=== PATIENT | female | born 1945 | race Caucasian/White ===

== ENCOUNTER 2019-08-25 06:18 | Inpatient (IN) | payer OTHER, BC ==
[2019-08-12 11:19] VITALS: BMI 23.6
--- NOTE | 2019-08-24 16:20 | SPA.PREOP ---
- PRE-OP NOTE Dx: ESRD Planned Procedure: permacath exchange Surgeon: Dr. Mathew - ASSESSMENT/PLAN 1. Make NPO after midnight except po meds 2. GI/DVT PPX 3. Medical optimization / clearance 4. Consent to be obtained by surgeon after risks, benefits and alternatives discussed with patient and or Health Care Proxy.
[2019-08-25] MEDS ORDERED: VANCOMYCIN 1,000 MG in DEXTROSE 5%-WATER - 250 ML IVPB ONE (06:41)
[2019-08-25] MEDS ORDERED: TRANEXAMIC ACID 1000 MG/10 ML VIAL IVPUSH ONE (06:41)
[2019-08-25] MEDS ORDERED: CEFAZOLIN 1 GM/D5W 1 GRAM/50 ML BAG IVPB ONE (06:41)
[2019-08-25] MEDS ORDERED: SODIUM CHLORIDE 0.9% P/F 10 ML VIAL IJ ONE (07:13)
[2019-08-25] MEDS ORDERED: MIDAZOLAM HCL 2 MG/2 ML SINGLE DOSE VIAL ONE ×2 (07:13→07:25)
[2019-08-25] MEDS ORDERED: BUPIVACAINE LIPOSOME/PF (EXPAREL) 266 MG/20 ML VIAL ONE (07:13)
[2019-08-25] MEDS ORDERED: PROPOFOL 20 ML ONE ×3 (08:02)
[2019-08-25] MEDS ORDERED: VANCOMYCIN 1,000 MG VIAL (RESTRICTED TO ID ONLY) ONE (08:03)
[2019-08-25] MEDS ORDERED: ceFAZolin SODIUM 1 GM VIAL ONE (08:03)
[2019-08-25] MEDS ORDERED: KETOROLAC TROMETHAMINE 30 MG/1 ML VIAL ONE (08:17)
[2019-08-25] MEDS ORDERED: DEXAMETHASONE SOD PHOSPHATE 4 MG/1 ML VIAL ONE (08:17)
[2019-08-25] MEDS ORDERED: ONDANSETRON 4 MG/2 ML VIAL ONE ×2 (08:43→11:05)
[2019-08-25] MEDS ORDERED: ONDANSETRON 4 MG/2 ML VIAL IVPUSH PRN (09:02)
[2019-08-25] MEDS ORDERED: oxyCODONE HCL 5 MG TABLET PO PRN (09:03)
[2019-08-25] MEDS ORDERED: TRANEXAMIC ACID 1000 MG/10 ML VIAL ONE (09:10)
[2019-08-25] MEDS ORDERED: LACTATED RINGERS SOLUTION 1,000 ML IV SCH ×2 (09:15→10:30)
--- NOTE | 2019-08-25 10:20 | OP ---
Operative Note - Note: Operative Date: 08/25/19 Pre-Operative Diagnosis: Right Tricompartment Osteoarthritis Knee Operation: Right Total Knee Arthroplasty Implants: [place]. Femur3 Triathlon Tibia 4 [id number] cement Standard Surgeon: Skip Prater Employment Appeals Examiner: Joel Johnson Anesthesia: Spinal Estimated Blood Loss (mls): 0 Fluid Volume Replaced (mls): 2 Operative Report Dictated: Yes
--- NOTE | 2019-08-25 10:28 | SURG ---
Surgery Detention Attendant Note Detention Attendant: Joel Johnson PA-C Date of Service: 08/25/19 Diagnosis: Right Tricompartment Osteoarthritis Knee Procedure: Right Total Knee Arthroplasty I was present for the entirety of the operative procedure. For further detail, please refer to operative report. Visit type - Case Type Case Type: Scheduled - New patient This patient is new to me today: Yes Date on this admission: 08/25/19
[2019-08-25] MEDS ORDERED: MAG HYDROX/AL HYDROX/SIMETH 30 ML UNIT-DOSE CUP PO PRN (10:30)
[2019-08-25] MEDS ORDERED: MAGNESIUM HYDROX 2400MG/30ML ORAL SUSPENSION 30 ML CUP PO PRN (10:30)
[2019-08-25] MEDS ORDERED: ACETAMINOPHEN 325 MG TABLET (FP) ONE (10:59)
[2019-08-25] MEDS: ONDANSETRON 4 MG/2 ML VIAL IVPUSH PRN (11:11)
[2019-08-25] MEDS: ACETAMINOPHEN 325 MG TABLET (FP) PO SCH ×4 (11:20→23:46)
--- NOTE | 2019-08-25 11:20 | HP ---
HISTORY OF PRESENT ILLNESS: 74 year-old female with a PMH significant for HLD, asthma, hypothyroidism, and OA s/p right total knee arthroplasty on 08/25/[address] Prater. PAST MEDICAL HISTORY: Hyperlipidemia Asthma Conductive hearing loss Carpal tunnel syndrome Hypothyroidism PAST SURGICAL HISTORY: Bilateral bone spurs Bilateral bunionectomy Bilateral stapedes Tonsillectomy Social History: Smoking: former, quit 30 years ago Alcohol: no Drugs: no Family history: Mother CHF, arthrits; father DM Allergies levofloxacin [From [facility]] Adverse Reaction (Severe, Verified 08/12/19 11:25) INSOMNIA X DAYS HOME MEDICATIONS: Home Medications Medication Instructions Recorded Albuterol Sulfate [Proventil HFA 1 - 2 inh PO DAILY 08/12/19 Inhaler -] Cetirizine HCl [Zyrtec -] 10 mg PO Q2D 08/12/19 Levothyroxine Sodium [Synthroid] 88 mcg PO DAILY 08/12/19 Montelukast Sodium [Singulair] 10 mg PO HS 08/12/19 REVIEW OF SYSTEMS CONSTITUTIONAL: Absent: fever, chills, diaphoresis, generalized weakness, malaise, loss of appetite, weight change HEENT: Absent: rhinorrhea, nasal congestion, throat pain, throat swelling, difficulty swallowing, mouth swelling, ear pain, eye pain, visual changes CARDIOVASCULAR: Absent: chest pain, syncope, palpitations, irregular heart rate, lightheadedness , peripheral edema RESPIRATORY: Absent: cough, shortness of breath, dyspnea with exertion, orthopnea, wheezing, stridor, hemoptysis GASTROINTESTINAL: Absent: abdominal pain, abdominal distension, nausea, vomiting, diarrhea, constipation, melena, hematochezia GENITOURINARY: Absent: dysuria, frequency, urgency, hesitancy, hematuria, flank pain, genital pain MUSCULOSKELETAL: Absent: myalgia, arthralgia, joint swelling, back pain, neck pain SKIN: Absent: rash, itching, pallor HEMATOLOGIC/IMMUNOLOGIC: Absent: easy bleeding, easy bruising, lymphadenopathy, frequent infections ENDOCRINE: Absent: unexplained weight gain, unexplained weight loss, heat intolerance, cold intolerance NEUROLOGIC: Absent: headache, focal weakness or paresthesias, dizziness, unsteady gait, seizure, mental status changes, bladder or bowel incontinence PSYCHIATRIC: Absent: anxiety, depression, suicidal or homicidal ideation, hallucinations. PHYSICAL EXAMINATION Vital Signs - 24 hr 08/25/19 08/25/19 08/25/19 06:44 10:30 10:35 Temperature 97.8 F 97.6 F Pulse Rate 64 53 L 52 L Respiratory 18 18 12 Rate Blood Pressure 169/70 143/76 139/50 L O2 Sat by Pulse 100 97 Oximetry (%) 08/25/19 08/25/19 08/25/19 10:40 10:45 11:00 Temperature Pulse Rate 51 L 53 L 51 L Respiratory 10 12 14 Rate Blood Pressure 143/70 140/75 152/54 L O2 Sat by Pulse 97 98 98 Oximetry (%) GENERAL: Awake, alert, and fully oriented, in no acute distress. HEAD: Normal with no signs of trauma. EYES: Pupils equal, round and reactive to light, extraocular movements intact, sclera anicteric, conjunctiva clear. No lid lag. LUNGS: Breath sounds equal, clear to auscultation bilaterally. No wheezes, and no crackles. No accessory muscle use. HEART: Regular rate and rhythm, S1 and S2 ABDOMEN: Soft, nontender, not distended UPPER EXTREMITIES: 2+ pulses, warm, well-perfused. No cyanosis. No clubbing. No peripheral edema. LOWER EXTREMITIES: RIGHT: surgical dressings c/d/i; ice pack; TEDs, SCDs, flex/ extend toes, 5/5 sensory NEUROLOGICAL: Cranial nerves II-XII intact. Normal speech. Pre op Hgb 13.5 BUN 20 Cr 0.7 Intra op Ancef 2g, Vanc 1 g LR 1600mL EBL <100mL ASSESSMENT/PLAN: 74 year-old female with a PMH significant for HLD, asthma, hypothyroidism, and OA s/p right total knee arthroplasty on 08/25/[address] Prater. --POD #0 --perioperative antibiotics per surgery --pain management per surgery --ASA 81mg BID --protonix --bowel regimen --incentive spirometry --no drains --voiding freely Hyperlipidemia --not on statin therapy Asthma --stable --continue albuterol, claritin Hypothyroidism --continue levothyroxine FEN Fluids: LR@125mL/hr Electrolytes: replete as indicated Nutrition: regular diet DVT prophylaxis: OOB, ambulation, SCDs, TEDs, ASA 81mg BID Physical therapy Dispo: continues to require inpatient care. Full code. Visit type - Emergency Visit Emergency Visit: No - New Patient This patient is new to me today: Yes Date on this admission: 08/25/19 - Critical Care Critical Care patient: No
[2019-08-25] MEDS: oxyCODONE HCL 5 MG TABLET PO PRN ×3 (12:10→23:47)
[2019-08-25] MEDS: CEFAZOLIN 1 GM/D5W 1 GRAM/50 ML BAG IVPB SCH (17:57)
--- NOTE | 2019-08-25 19:22 | OP ---
DATE OF OPERATION: 08/25/2019 SURGEON: Skip Prater M.D. [employer]BI[employer] MECHANIC: [employer] PREOPERATIVE DIAGNOSIS: Fixed valgus, fixed flexed, tricompartment osteoarthritis, right knee. POSTOPERATIVE DIAGNOSIS: Fixed valgus, fixed flexed, tricompartment osteoarthritis, right knee. OPERATION: Right posterior stabilized total knee arthroplasty. ANESTHESIA: Conscious sedation with spinal anesthesia and peripheral nerve block. ANTIBIOTICS GIVEN: 2 g Kefzol, 1 g vancomycin preoperative; 1 g Kefzol given at the end of the procedure. TOURNIQUET TIME: 80 minutes. OPERATION DETAILS: The patient was correctly identified, brought in operating room. The right lower extremity was prepped, draped in the routine manner with Betadine scrub solution, wiped off with alcohol, DuraPrep applied. Tourniquet applied. A free drape applied. Timeout was called. Preoperative evaluation clinically revealed a fixed valgus of 10 degrees and 5 degrees fixed flexed deformity. Midline incision utilized. The dissection was taken through subcutaneous tissue to the quadriceps mechanism. The soft tissue of the proximal tibia was freed using sharp dissection to the tibial bone bed, raising a flap off the proximal medial aspect of the tibia, right around the medial surface of the patella itself. Hence the distal 1/3 at the level of the patella, the incision was then coursed posteriorly leaving a cuff of soft tissue attached to the vastus medialis and extending all the way around to the linea aspera posteromedially. The epimysium of the actual muscle was freed completely. With finger dissection above the suprapatellar pouch, a blunt hammer was placed behind the entire quadriceps mechanism muscle and gently flexing the knee, the entire patella was lateralized without any difficulty. This was a typical subvastus approach. Hemostasis was achieved appropriately at the back of the femur in the area of the dissection. This was well away from the saphenous hiatus and the vascular bundle. The tibia was cut first to neutral, that is aligned with the extramedullary jig alignment of [place]. The tibial cut was made neutral and 90 degrees to the actual shaft of the tibia, sizing of the component measured size 4 for a tibial tray. The appropriate entry hole for the femur was inserted. The femoral condyle was deficient laterally both in the coronal as well as flexion plane. The posterior bone of the femoral component was markedly deficient. Jigs were adjusted accordingly, and the cuts were made with the knee at 90 degrees of flexion base of the epicondylar axis. The tibial plateau that had already been cut to 90 degrees of the shaft and [place]'s line. The jigs seated and allowed for a measurement of size 3 femur. The appropriate cuts were made using the block jigs appropriately. The box cut was made with the appropriate jig and the trial components were seated, bringing about anatomic realignment from valgus, full extension with 11-mm polyethylene, and flexion-extension gaps were even at 11 mm. Once this had been ascertained, the tibial and femoral bone beds were thoroughly lavaged. The patella was cut in accordance with Sal's line from patellar ligament to quadriceps tendon. This was facilitated by using 2 patellar clamps everting the patella and holding it firmly in the hand while the cut was made. The appropriate lugholes for the jig for a 27-mm patellar button were applied. This was positioned, and the trialing of the components revealed excellent alignment, normal patellar tracking, and a negative thumb test test, complete stability in flexion as well as extension, including rotational stability. Now that we were satisfied with the positioning of the trial components, they were removed and a size 3 femur, size 3 tibia, with an 11-mm polyethylene liner and a 27-mm polyethylene button was cemented in position using routine cement. All extraneous cement had been removed. The wounds were thoroughly lavaged. The knee was checked again for stability and appropriate range of motion. Range of motion was 0 to 120 degrees, and stability in the coronal sagittal rotational plane was normal and patella tracking was completely normal. The wounds were again lavaged. No need for a drain, as the entire tissue bed was dry. Closure: The medial retinacular tissues to the remaining soft tissue of the vastus medialis with number 1 Vicryl, subcutaneous 1 and 2-0 Vicryl, skin 3-0 Monocryl with Steri-Strips. Operation went well, no complications. MD EUNICE Babin/[id number]
[2019-08-25] MEDS: ASPIRIN COATED 81 MG TABLET.EC PO SCH (21:06)
[2019-08-25] MEDS: ASCORBIC ACID 500 MG TABLET (FP) PO SCH (21:06)
[2019-08-25] MEDS: SENNOSIDES/DOCUSATE COMBO (SENNA PLUS) TABLET (UD) PO SCH (21:06)
[2019-08-25] MEDS: MONTELUKAST NA 10 MG TABLET PO SCH ×2 (21:06→22:00)
[2019-08-26] MEDS: CEFAZOLIN 1 GM/D5W 1 GRAM/50 ML BAG IVPB SCH (03:01)
[2019-08-26] MEDS: ACETAMINOPHEN 325 MG TABLET (FP) PO SCH ×4 (06:37→23:56)
[2019-08-26] MEDS: oxyCODONE HCL 5 MG TABLET PO PRN ×2 (06:38→09:15)
[2019-08-26] MEDS: LEVOTHYROXINE NA 88 MCG TABLET (FP) PO SCH (06:38)
[2019-08-26 07:15] LABS: HEMATOCRIT 35.1 % (32.4-45.2); HEMOGLOBIN 11.4 GM/dl (10.7-15.3); MCH 30.9 pg (25.7-33.7); MCHC 32.6 g/dl (32.0-36.0); MEAN CELL VOLUME 94.8 fl (80-96); PLATELET COUNT 171 K/MM3 (134-434); RBC 3.71 M/mm3 (3.60-5.2); RDW 11.9 % (11.6-15.6); WHITE BLOOD COUNT 7.8 K/mm3 (4.0-10.8)
[2019-08-26 07:30] LABS: CALCIUM 8.7 mg/dl (8.5-10); CREATININE 0.7 mg/dl (0.55-1.3); POTASSIUM 3.8 mmol/L (3.5-5.1)
[2019-08-26] MEDS: SENNOSIDES/DOCUSATE COMBO (SENNA PLUS) TABLET (UD) PO SCH ×2 (09:15→21:18)
[2019-08-26] MEDS: ASPIRIN COATED 81 MG TABLET.EC PO SCH ×2 (09:15→21:18)
[2019-08-26] MEDS: ASCORBIC ACID 500 MG TABLET (FP) PO SCH ×2 (09:15→21:18)
[2019-08-26] MEDS: PANTOPRAZOLE 40 MG TABLET (FP) PO SCH (09:15)
[2019-08-26] MEDS: MULTIVITAMINS (DAILY MVI) TABLET (FP) PO SCH (09:15)
[2019-08-26] MEDS: ALBUTEROL SO4 8 GM HFA INHALER IH SCH (09:17)
--- NOTE | 2019-08-26 10:07 | PN ---
Progress Note (short form) - Note Progress Note: POD#1 Pt without any complaints this am. No CP/SOB. OOB and ambulating to the restroom , passing flatus. Her right knee pain is around a 3 to 4. Vital Signs Period Temp Pulse Resp BP Sys/Brown Pulse Ox Last 24 Hr 97 F-98.6 F 51-66 10-18 103-152/50-92 95-100 GEN: A&0x3, NAD CC: RRR Lungs: CTA b/l LE: b/l calves soft, non-tender, no swelling. Neuro: 5/5 dorsi/plantar flexion b/l and EHL. Able to straight leg raise both legs, left stronger than the right. Right dressing c/d/i. +2 dp pulse b/l. CBC, BMP 08/26/19 07:09 08/26/19 07:09 A/P: s/p Right total knee replacement Pain well managed, plan for PT today OOB/ambulate with PT and nursing staff Stool softners for constipation DVT with aspirin 81mg oral BID/VICKI/SCDs and ambulation D/w Dr. Prater
--- NOTE | 2019-08-26 10:21 | HP ---
CHIEF COMPLAINT: PCP: HISTORY OF PRESENT ILLNESS: ER course was notable for: (1) (2) (3) Recent Travel: PAST MEDICAL HISTORY: PAST SURGICAL HISTORY: Social History: Smoking: Alcohol: Drugs: [facility]ies [facility] Adverse Reaction (Severe, Verified 08/12/19 11:25) INSOMNIA X DAYS HOME MEDICATIONS: Home Medications Medication Instructions Recorded Albuterol Sulfate [Proventil HFA 1 - 2 inh PO DAILY 08/12/19 Inhaler -] Cetirizine HCl [Zyrtec -] 10 mg PO Q2D 08/12/19 Levothyroxine Sodium [Synthroid] 88 mcg PO DAILY 08/12/19 Montelukast Sodium [Singulair] 10 mg PO HS 08/12/19 REVIEW OF SYSTEMS CONSTITUTIONAL: Absent: fever, chills, diaphoresis, generalized weakness, malaise, loss of appetite, weight change HEENT: Absent: rhinorrhea, nasal congestion, throat pain, throat swelling, difficulty swallowing, mouth swelling, ear pain, eye pain, visual changes CARDIOVASCULAR: Absent: chest pain, syncope, palpitations, irregular heart rate, lightheadedness , peripheral edema RESPIRATORY: Absent: cough, shortness of breath, dyspnea with exertion, orthopnea, wheezing, stridor, hemoptysis GASTROINTESTINAL: Absent: abdominal pain, abdominal distension, nausea, vomiting, diarrhea, constipation, melena, hematochezia GENITOURINARY: Absent: dysuria, frequency, urgency, hesitancy, hematuria, flank pain, genital pain MUSCULOSKELETAL: Absent: myalgia, arthralgia, joint swelling, back pain, neck pain SKIN: Absent: rash, itching, pallor HEMATOLOGIC/IMMUNOLOGIC: Absent: easy bleeding, easy bruising, lymphadenopathy, frequent infections ENDOCRINE: Absent: unexplained weight gain, unexplained weight loss, heat intolerance, cold intolerance NEUROLOGIC: Absent: headache, focal weakness or paresthesias, dizziness, unsteady gait, seizure, mental status changes, bladder or bowel incontinence PSYCHIATRIC: Absent: anxiety, depression, suicidal or homicidal ideation, hallucinations. PHYSICAL EXAMINATION Vital Signs - 24 hr 08/25/19 08/25/19 08/25/19 10:30 10:35 10:40 Temperature 97.6 F Pulse Rate 53 L 52 L 51 L Respiratory 18 12 10 Rate Blood Pressure 143/76 139/50 L 143/70 O2 Sat by Pulse 100 97 97 Oximetry (%) 08/25/19 08/25/19 08/25/19 10:45 11:00 11:15 Temperature Pulse Rate 53 L 51 L 54 L Respiratory 12 14 16 Rate Blood Pressure 140/75 152/54 L 146/67 O2 Sat by Pulse 98 98 98 Oximetry (%) 08/25/19 08/25/19 08/25/19 11:30 18:00 22:18 Temperature 97 F L 98.5 F 98.6 F Pulse Rate 54 L 62 62 Respiratory 16 16 18 Rate Blood Pressure 148/92 126/62 103/52 L O2 Sat by Pulse 98 95 95 Oximetry (%) 08/26/19 08/26/19 08/26/19 02:38 06:58 08:14 Temperature 98.5 F 98.5 F Pulse Rate 66 63 Respiratory 18 18 18 Rate Blood Pressure 142/74 105/56 L O2 Sat by Pulse 96 97 97 Oximetry (%) GENERAL: Awake, alert, and fully oriented, in no acute distress. HEAD: Normal with no signs of trauma. EYES: Pupils equal, round and reactive to light, extraocular movements intact, sclera anicteric, conjunctiva clear. No lid lag. EARS, NOSE, THROAT: Ears normal, nares patent, oropharynx clear without exudates. Moist mucous membranes. NECK: Normal range of motion, supple without lymphadenopathy, JVD, or masses. LUNGS: Breath sounds equal, clear to auscultation bilaterally. No wheezes, and no crackles. No accessory muscle use. HEART: Regular rate and rhythm, normal S1 and S2 without murmur, rub or gallop. ABDOMEN: Soft, nontender, not distended, normoactive bowel sounds, no guarding, no rebound, no masses. No hepatomegaly or splenomegaly. MUSCULOSKELETAL: Normal range of motion at all joints. No bony deformities or tenderness. No CVA tenderness. UPPER EXTREMITIES: 2+ pulses, warm, well-perfused. No cyanosis. No clubbing. No peripheral edema. LOWER EXTREMITIES: 2+ pulses, warm, well-perfused. No calf tenderness. No peripheral edema. NEUROLOGICAL: Cranial nerves II-XII intact. Normal speech. Normal gait. PSYCHIATRIC: Cooperative. Good eye contact. Appropriate mood and affect. SKIN: Warm, dry, normal turgor, no rashes or lesions noted, normal capillary refill. Laboratory Results - last 24 hr 08/26/19 08/26/19 07:09 07:09 WBC 7.8 RBC 3.71 Hgb 11.4 Hct 35.1 MCV 94.8 MCH 30.9 MCHC 32.6 RDW 11.9 Plt Count 171 MPV 8.0 Sodium 136 Potassium 3.8 Chloride 101 Carbon Dioxide 25 Anion Gap 10 BUN 18.0 Creatinine 0.7 Est GFR (CKD-EPI)AfAm 100.32 Est GFR (CKD-EPI)NonAf 86.56 Random Glucose 136 H Calcium 8.7 Magnesium 2.0 ASSESSMENT/PLAN:
--- NOTE | 2019-08-26 10:45 | PN ---
Progress Note (short form) - Note Progress Note: 74yo F s/p TKR w spinal and PNB. pt comfortable on PO meds. no anesthetic comps. good result anesthetic care
[2019-08-26] MEDS ORDERED: KETOROLAC TROMETHAMINE 30 MG/1 ML VIAL IVPUSH PRN (13:34)
--- NOTE | 2019-08-26 13:34 | PN ---
Physical Exam: SUBJECTIVE: Patient seen and examined. [place] oversedated during PT, was falling asleep. Now feels unwell, pain in knee, does not want to go back to PT. OBJECTIVE: Vital Signs Period Temp Pulse Resp BP Sys/Brown Pulse Ox Last 24 Hr 98.5 F-98.6 F 62-66 16-18 103-142/52-74 95-97 GENERAL: Awake, alert, and fully oriented, in no acute distress. HEAD: Normal with no signs of trauma. EYES: Pupils equal, round and reactive to light, extraocular movements intact, sclera anicteric, conjunctiva clear. No lid lag. LUNGS: Breath sounds equal, clear to auscultation bilaterally. No wheezes, and no crackles. No accessory muscle use. HEART: Regular rate and rhythm, S1 and S2 ABDOMEN: Soft, nontender, not distended UPPER EXTREMITIES: 2+ pulses, warm, well-perfused. No cyanosis. No clubbing. No peripheral edema. LOWER EXTREMITIES: RIGHT: surgical dressings c/d/i; ice pack; TEDs, SCDs, flex/ extend toes, 5/5 sensory NEUROLOGICAL: Cranial nerves II-XII intact. Normal speech. Laboratory Results - last 24 hr 08/26/19 08/26/19 07:09 07:09 WBC 7.8 RBC 3.71 Hgb 11.4 Hct 35.1 MCV 94.8 MCH 30.9 MCHC 32.6 RDW 11.9 Plt Count 171 MPV 8.0 Sodium 136 Potassium 3.8 Chloride 101 Carbon Dioxide 25 Anion Gap 10 BUN 18.0 Creatinine 0.7 Est GFR (CKD-EPI)AfAm 100.32 Est GFR (CKD-EPI)NonAf 86.56 Random Glucose 136 H Calcium 8.7 Magnesium 2.0 Active Medications Generic Name Dose Route Start Last Admin Trade Name Freq PRN Reason Stop Dose Admin Acetaminophen 650 mg 08/25/19 12:00 08/26/19 06:37 Tylenol - PO 08/28/19 11:59 650 mg Q6H ZEYNEP Administration Al Hydroxide/Mg Hydroxide 30 ml 08/25/19 10:30 Mylanta Oral Suspension - PO Q4H PRN DYSPEPSIA Albuterol Sulfate 1 - 2 puff 08/26/19 10:00 08/26/19 09:17 Ventolin Hfa Inhaler - IH 1 puff DAILY ZEYNEP Administration Ascorbic Acid 500 mg 08/25/19 22:00 08/26/19 09:15 Vitamin C - PO 500 mg BID [facility] Administration Aspirin 81 mg 08/25/19 22:00 08/26/19 09:15 Ecotrin - PO 81 mg BID [facility] Administration Levothyroxine Sodium 88 mcg 08/26/19 07:00 08/26/19 06:38 Synthroid - PO 88 mcg DAILY@0700 [facility] Administration Loratadine 10 mg 08/27/19 10:00 Claritin - PO Q2D [facility] Magnesium Hydroxide 30 ml 08/25/19 10:30 Milk Of Magnesia - PO PRN PRN CONSTIPATION Montelukast Sodium 10 mg 08/25/19 22:00 08/25/19 22:00 Singulair - PO Not Given [facility] Multivitamins/Minerals/Vitamin C 1 tab 08/26/19 10:00 08/26/19 09:15 Tab-A-Vit - PO 1 tab DAILY [facility] Administration Ondansetron HCl 4 mg 08/25/19 10:30 08/25/19 11:11 Zofran Injection IVPUSH 4 mg Q6H PRN Administration NAUSEA Oxycodone HCl 5 mg 08/25/19 09:03 08/26/19 03:08 Roxicodone - PO 5 mg Q3H PRN Administration PAIN LEVEL 1-5 Oxycodone HCl 10 mg 08/25/19 09:03 08/26/19 09:15 Roxicodone - PO 10 mg Q3H PRN Administration PAIN LEVEL 6-10 Pantoprazole Sodium 40 mg 08/26/19 10:00 08/26/19 09:15 Protonix - PO 40 mg DAILY [facility] Administration Senna/Docusate Sodium 2 tablet 08/25/19 22:00 08/26/19 09:15 Pericolace - PO 2 tablet BID [facility] Administration ASSESSMENT/PLAN 74 year-old female with a PMH significant for HLD, asthma, hypothyroidism, and OA s/p right total knee arthroplasty on 08/25/[address] Prater. --POD # --perioperative antibiotics complete --not tolerating opioids; toradol , ultram, Tylenol PRN --ASA 81mg BID --protonix --bowel regimen --incentive spirometry --no drains --voiding Hyperlipidemia --not on statin therapy Asthma --stable --continue albuterol, claritin Hypothyroidism --continue levothyroxine FEN Fluids: PO intake adequate Electrolytes: replete as indicated Nutrition: regular diet DVT prophylaxis: OOB, ambulation, SCDs, TEDs, ASA 81mg BID Physical therapy Dispo: continues to require inpatient care. Full code. Visit type - Emergency Visit Emergency Visit: No - New Patient This patient is new to me today: No - Critical Care Critical Care patient: No
[2019-08-26] MEDS: traMADol HCL 50 MG TABLET PO PRN (18:30)
[2019-08-26] MEDS: MONTELUKAST NA 10 MG TABLET PO SCH (21:18)
[2019-08-27] MEDS: traMADol HCL 50 MG TABLET PO PRN ×2 (00:41→06:15)
[2019-08-27] MEDS: LEVOTHYROXINE NA 88 MCG TABLET (FP) PO SCH (06:15)
[2019-08-27] MEDS: ACETAMINOPHEN 325 MG TABLET (FP) PO SCH (06:15)
[2019-08-27 07:17] LABS: HEMATOCRIT 31.2 % (32.4-45.2); HEMOGLOBIN 10.7 GM/dl (10.7-15.3); MCH 31.9 pg (25.7-33.7); MCHC 34.2 g/dl (32.0-36.0); MEAN CELL VOLUME 93.4 fl (80-96); MEAN PLT VOLUME 7.9 fl (7.5-11.1); PLATELET COUNT 141 K/MM3 (134-434); RBC 3.34 M/mm3 (3.60-5.2); RDW 11.7 % (11.6-15.6); WHITE BLOOD COUNT 7.6 K/mm3 (4.0-10.8)
--- NOTE | 2019-08-27 08:54 | PN ---
Progress Note (short form) - Note Progress Note: ORTHOPAEDIC SURGERY POD #2 Alert. Sitting in chair at bedside. C/o mild incisional tenderness. Adequate pain with meds ordered. PT notes reveiwed and recovering as expected. Voiding spontaneously. Tolerating PO diet. Denies n/v/f/c, CP, palpitations, SOB or MOORE. Last Vital Signs Temp Pulse Resp BP Pulse Ox 98.0 F 60 18 103/56 L 97 08/27/19 06:06 08/27/19 06:06 08/27/19 06:06 08/27/19 06:06 08/27/19 08:12 CBC, BMP 08/27/19 07:07 08/26/19 07:09 Gen: nad LE: LLE unremarkable. RLE ice pack in place, dressing taken down on rounds. Jumstart dressing c/d/i. Flex knee to 90 degrees. No gross sensory/motor deficits. SCDs bilat. No calf tenderness Problem List - Problems (1) Status post total right knee replacement using cement Assessment/Plan: POD #2 s/p Right TKA - Pain control - DVT PPX 1.) ASA 81 mg PO BID x 6 weeks, 2.) Mechanical via TEDs & SCDs - Cont incentive spirometer - PT - WBAT RLE - Cleared for discharge home today after PT session - f/u with [facility] ([place] Office) --> - Above plan discussed with my attending and agrees Code(s): Z96.651 - PRESENCE OF RIGHT ARTIFICIAL KNEE JOINT (2) Tricompartment osteoarthritis of right knee Code(s): M17.11 - UNILATERAL PRIMARY OSTEOARTHRITIS, RIGHT KNEE
[2019-08-27] MEDS ORDERED: PT OWN MED DRAWER 7, Y5N ONE (09:32)
--- NOTE | 2019-08-27 09:39 | DS ---
"Physical Exam: SUBJECTIVE: Patient seen and examined. Feeling much better after resting after PT. OBJECTIVE: Vital Signs Period Temp Pulse Resp BP Sys/Brown Pulse Ox Last 24 Hr 98.0 F-99.0 F 58-73 18-18 103-126/45-58 93-98 PHYSICAL EXAM GENERAL: Awake, alert, and fully oriented, in no acute distress. HEAD: Normal with no signs of trauma. EYES: Pupils equal, round and reactive to light, extraocular movements intact, sclera anicteric, conjunctiva clear. No lid lag. LUNGS: Breath sounds equal, clear to auscultation bilaterally. No wheezes, and no crackles. No accessory muscle use. HEART: Regular rate and rhythm, S1 and S2 ABDOMEN: Soft, nontender, not distended UPPER EXTREMITIES: 2+ pulses, warm, well-perfused. No cyanosis. No clubbing. No peripheral edema. LOWER EXTREMITIES: RIGHT: surgical dressings c/d/i; ice pack; TEDs, SCDs, flex/ extend toes, 5/5 sensory NEUROLOGICAL: Cranial nerves II-XII intact. Normal speech. LABS Laboratory Results - last 24 hr 08/27/19 07:07 WBC 7.6 RBC 3.34 L Hgb 10.7 Hct 31.2 L MCV 93.4 MCH 31.9 MCHC 34.2 RDW 11.7 Plt Count 141 MPV 7.9 HOSPITAL COURSE: Date of Admission:08/25/19 Date of Discharge: 08/27/19 74 year-old female with a PMH significant for HLD, asthma, hypothyroidism, and OA s/p right total knee arthroplasty on 08/25/[address] Prater. --perioperative antibiotics complete --did not tolerate opioids (nausea, somnolence) --ASA 81mg BID x 6 weeks Hyperlipidemia --not on statin therapy Asthma --stable --continued albuterol, claritin Hypothyroidism --continued levothyroxine I Stop Confidential Drug Utilization Report Search Terms: Dario Virgen, 1945 Search Date: 08/27/2019 11:57:49 AM The Drug Utilization Report below displays all of the controlled substance prescriptions, if any, that your patient has filled in the last twelve months. The information displayed on this report is compiled from pharmacy submissions to the Department, and accurately reflects the information as submitted by the pharmacies. This report was requested by: Daija Vargas | Reference #: [id number] There are no results for the search terms that you entered Minutes to complete discharge: 35 Discharge Summary Problems reviewed: Yes Reason For Visit: RIGHT KNEE OSTEOARTHRITIS Current Active Problems Status post total right knee replacement using cement (Acute) Tricompartment osteoarthritis of right knee (Acute) Condition: Improved - Instructions Diet, Activity, Other Instructions: Dr. Prater Discharge Instructions for Knee Replacement Post Operative Instructions Physical activity Physical Therapist will come to your home for the first 5 days. You will be set up with outpatient PT at your first post-operative visit. Use assistive devices for ambulation at all times. Weight bearing as tolerated on your surgical side. Do not put pillow under knee. May put pillow under heel. Wound care Leave your surgical dressing in place. Do not change the dressing until seen by your surgeon in the office. No baths or showers. Do not submerge your incision. Do not apply any ointments or lotions to your incision. Please call the office if your dressing is soiled/dirty or is falling off. Apply Graduated Compression Stockings (TEDS) to both lower extremities - remove daily for hygiene ONLY. Diet There are no dietary restrictions. Eat healthy, high-fiber foods. Drink 6 to 8 glasses of liquid each day. This will assist in keeping your bowels are regular. Pain management Any pain prescription medication ordered should be taken as prescribed for moderate to severe pain. Do not take additional Tylenol while taking Percocet. Take Aspirin 81 mg two times a day for a total of 6 weeks to prevent blood clots. Call Dr. Prater for any of the following: Severe pain not relieved by medication Fever of 101 or higher Excessive bleeding or drainage on dressing Inability to urinate If you experience chest pain or shortness of breath, please seek emergency care immediately. ISTOP: This report was requested by: Flora Gibbs | Reference #: [id number] Please call the office at to confirm your post-op appointment for the week following surgery. Patient needs VNS services: RN longterm assessment and physical therapy x 7 consecutive days. Referrals: Moris Prater MD [Staff Physician] - Disposition: HOME - Home Medications Comprehensive Discharge Medication List: Ambulatory Orders Albuterol Sulfate [Proventil HFA Inhaler -] 1 - 2 inh PO DAILY 08/12/19 Cetirizine HCl [Zyrtec -] 10 mg PO Q2D 08/12/19 Levothyroxine Sodium [Synthroid] 88 mcg PO DAILY 08/12/19 Montelukast Sodium [Singulair] 10 mg PO HS 08/12/19 This patient is new to me today: No Emergency Visit: No Critical Care patient: No - Discharge Referral Referred to [facility] No"
[2019-08-27] MEDS: MULTIVITAMINS (DAILY MVI) TABLET (FP) PO SCH (09:57)
[2019-08-27] MEDS: ASPIRIN COATED 81 MG TABLET.EC PO SCH (09:57)
[2019-08-27] MEDS: PANTOPRAZOLE 40 MG TABLET (FP) PO SCH (09:57)
[2019-08-27] MEDS: SENNOSIDES/DOCUSATE COMBO (SENNA PLUS) TABLET (UD) PO SCH (09:58)
[2019-08-27] MEDS: ALBUTEROL SO4 8 GM HFA INHALER IH SCH (09:58)
[2019-08-27] MEDS: ASCORBIC ACID 500 MG TABLET (FP) PO SCH (09:58)
[2019-08-27 10:00] VITALS: BP 101/58; PULSE 65; TEMP 98.6
[2019-08-27] MEDS ORDERED: LORATADINE 10 MG TABLET PO SCH (10:00)
[2019-08-27] MEDS: ONDANSETRON 4 MG/2 ML VIAL IVPUSH PRN (10:37)
--- NOTE | 2019-08-30 17:27 | PATH ---
Surgical Pathology Report Patient Name: JACK MEZA Med. Rec. #: [id number] /Age/Gender: 1945 (Age: 74) / F Account: [id number] Location: [facility] Taken: 08/25/2019 Received: 08/25/2019 Reported: 08/30/2019 Physicians: Skip Prater M.D. Specimen(s) Received BONES RIGHT KNEE Clinical History Right knee osteoarthritis Final Diagnosis BONES, KNEE, RIGHT, TOTAL KNEE REPLACEMENT: BONE WITH DEGENERATIVE JOINT DISEASE. Electronically Signed Jaye Miller M.D. Gross Description Received in formalin labeled "bones right knee," is an 11.5 x 8.0 x 1.5 cm aggregate of multiple portions of bone and soft tissue. The tibial plateau measures 7.5 x 5.0 x 1.5 cm. There is a 2.0 cm in greatest dimension area of eburnation present. The remaining articular surfaces are alfred-yellow and focally granular. The underlying trabecular bone is yellow and hard. Hogshead Weigher sections are submitted in one cassette, following decalcification. /08/26/2019 [facility]/26/2019
== END 2019-08-27 14:10 | disposition home or self-care (01) | DRG 470 ==
LOC: FM/S 06:18
PROVIDERS: ADMIT Orthopaedic Surgery Orthopaedic Surgery of the Spine; ATTEND Nurse Practitioner Acute Care
PROC: 0SRC0J9 Replacement of Right Knee Joint with Synthetic Substitute, Cemented, Open Approach (ICD-10-PCS; principal; 2019-08-25 08:45)
DX: M17.11 Unilateral primary osteoarthritis, right knee (principal); E78.5 Hyperlipidemia, unspecified; E03.9 Hypothyroidism, unspecified; J45.909 Unspecified asthma, uncomplicated; G56.00 Carpal tunnel syndrome, unspecified upper limb; Z87.891 Personal history of nicotine dependence; H90.2 Conductive hearing loss, unspecified
CPT/HCPCS: 36415; 73560-TC-RT-FY; 80048; 83735; 85027; 88305-TC; 88311-TC; 94760; 97116-GP; 97163-GP

== ENCOUNTER 2022-10-02 08:00 | Inpatient (IN) | payer OTHER, BC ==
[2022-09-30 10:34] VITALS: BMI 23.7
[2022-10-02] MEDS ORDERED: BUPIVACAINE LIPOSOME/PF (EXPAREL) 266 MG/20 ML VIAL ONE (12:05)
[2022-10-02] MEDS ORDERED: MIDAZOLAM HCL 2 MG/2 ML SINGLE DOSE VIAL ONE ×4 (12:05→13:58)
[2022-10-02] MEDS ORDERED: BUPIVACAINE HCL/PF 0.5% (5 MG/ML) 30 ML VIAL IJ ONE (12:05)
[2022-10-02] MEDS ORDERED: VANCOMYCIN 1,000 MG VIAL (RESTRICTED TO ID ONLY) ONE (12:24)
[2022-10-02] MEDS ORDERED: ceFAZolin SODIUM 1 GM VIAL ONE (12:25)
[2022-10-02] MEDS ORDERED: BUPIVACAINE HCL 50 ML ONE (12:26)
[2022-10-02] MEDS ORDERED: ONDANSETRON 4 MG/2 ML VIAL ONE (13:24)
[2022-10-02] MEDS ORDERED: DEXAMETHASONE SOD PHOSPHATE 4 MG/1 ML VIAL ONE (13:24)
[2022-10-02] MEDS ORDERED: MAGNESIUM HYDROX 2400MG/30ML ORAL SUSPENSION 30 ML CUP PO PRN (15:17)
[2022-10-02] MEDS ORDERED: MAG HYDROX/AL HYDROX/SIMETH 30 ML UNIT-DOSE CUP PO PRN (15:17)
[2022-10-02] MEDS ORDERED: ONDANSETRON 4 MG/2 ML VIAL IVPUSH PRN ×2 (15:17→15:27)
[2022-10-02] MEDS ORDERED: ACETAMINOPHEN INJECTION 100 ML IVPB ONE (15:26)
[2022-10-02] MEDS ORDERED: ACETAMINOPHEN 1000 MG/100 ML BAG IVPB ONE (15:29)
[2022-10-02] MEDS ORDERED: oxyCODONE HCL 5 MG TABLET PO PRN (15:29)
[2022-10-02] MEDS ORDERED: LACTATED RINGERS SOLUTION 1,000 ML IV SCH ×2 (15:30)
[2022-10-02] MEDS: oxyCODONE HCL 5 MG TABLET PO PRN (17:44)
[2022-10-02] MEDS ORDERED: MOMETASONE FUROATE 220 MCG/IH INHALER IH SCH (20:00)
[2022-10-02] MEDS ORDERED: HYDROmorphone HCl 2 MG/ML VIAL IVPB ONE (20:15)
[2022-10-02] MEDS: CEFAZOLIN SODIUM 2 GM in DEXTROSE 5%-WATER 100 ML IVPB SCH (20:30)
[2022-10-02] MEDS ORDERED: MONTELUKAST NA 10 MG TABLET PO SCH (22:00)
[2022-10-02] MEDS ORDERED: ATORVASTATIN CA 80 MG TABLET (FP) PO SCH (22:00)
[2022-10-02] MEDS: ASPIRIN COATED 81 MG TABLET.EC PO SCH (22:01)
[2022-10-02] MEDS: CELECOXIB 100 MG CAPSULE PO SCH (22:01)
[2022-10-02] MEDS: SENNOSIDES/DOCUSATE COMBO (SENNA PLUS) TABLET (UD) PO SCH (22:02)
[2022-10-03] MEDS: oxyCODONE HCL 5 MG TABLET PO PRN ×2 (00:17→13:47)
[2022-10-03] MEDS: CEFAZOLIN SODIUM 2 GM in DEXTROSE 5%-WATER 100 ML IVPB SCH ×2 (02:00→08:39)
[2022-10-03 03:15] VITALS: RESP 18
[2022-10-03] MEDS ORDERED: HYDROmorphone HCl 2 MG/ML VIAL IVPB ONE (05:58)
[2022-10-03] MEDS ORDERED: LEVOTHYROXINE NA 88 MCG TABLET (FP) PO SCH (07:00)
[2022-10-03 08:16] LABS: CALCIUM 8.4 mg/dl (8.5-10); CREATININE 0.7 mg/dl (0.55-1.3)
[2022-10-03 08:20] LABS: HEMATOCRIT 30.9 % (32.4-45.2); HEMOGLOBIN 10.5 G/dL (10.7-15.3); MCH 30.6 pg (25.7-33.7); MCHC 33.9 g/dl (32.0-36.0); MEAN PLT VOLUME 7.8 fl (7.5-11.1); PLATELET COUNT 157.3 10^3/uL (134-434); RBC 3.43 10^6/uL (3.60-5.2); RDW 13.4 % (11.6-15.6); WHITE BLOOD COUNT 7.7 10^3/uL (4.0-10.8)
[2022-10-03] MEDS ORDERED: PATIENT'S OWN MEDICATION (NON-FORMULARY) (Famotidine 40 MG Tablet) PO SCH (10:00)
[2022-10-03] MEDS ORDERED: PANTOPRAZOLE 40 MG TABLET PO SCH (10:00)
[2022-10-03] MEDS: SENNOSIDES/DOCUSATE COMBO (SENNA PLUS) TABLET (UD) PO SCH (11:41)
[2022-10-03] MEDS: ASPIRIN COATED 81 MG TABLET.EC PO SCH (11:41)
[2022-10-03] MEDS: CELECOXIB 100 MG CAPSULE PO SCH (11:42)
[2022-10-03 14:05] VITALS: BP 153/69; PULSE 70; TEMP 98.9
== END 2022-10-03 19:30 | disposition home or self-care (01) | DRG 470 ==
LOC: FM/S 08:49
PROVIDERS: ADMIT Orthopaedic Surgery Orthopaedic Surgery of the Spine; ATTEND Orthopaedic Surgery Orthopaedic Surgery of the Spine
PROC: 0SRD0J9 Replacement of Left Knee Joint with Synthetic Substitute, Cemented, Open Approach (ICD-10-PCS; principal; 2022-10-02 13:06)
DX: M17.12 Unilateral primary osteoarthritis, left knee (principal); E03.9 Hypothyroidism, unspecified; K21.9 Gastro-esophageal reflux disease without esophagitis; E78.5 Hyperlipidemia, unspecified; H91.8X9 Other specified hearing loss, unspecified ear; G56.00 Carpal tunnel syndrome, unspecified upper limb; J45.909 Unspecified asthma, uncomplicated; I10 Essential (primary) hypertension
CPT/HCPCS: 36415; 73560-TC-LT-FY; 80048; 85027; 88305-TC; 88311-TC; 94760; 97010-GP; 97116-GP; 97162-GP; C1713; C1776; C9803-CS; U0003; U0005